=== PATIENT | male | born 1995 | race Caucasian/White ===

== ENCOUNTER 2022-05-10 12:12 | Emergency (ER) | payer OTHER ==
[2022-05-10] MEDS ORDERED: Morphine 4 MG/ML VIAL ONE ×2 (13:07→15:40)
[2022-05-10] MEDS ORDERED: Ondansetron PF 4 MG/2 ML Vial ONE (13:07)
[2022-05-10] MEDS ORDERED: Clindamycin/D5W 900 mg/50 ml Premix Bag ONE (13:07)
[2022-05-10 13:47] LABS: Anion Gap 21 mmol/L (10-20); BUN (Urea Nitrogen) 8 mg/dL (8.9-20.6); Calc. Creatinine Clearance 0 mL/min (70-130); Calcium 9.7 mg/dL (7.8-10.44); Carbon Dioxide 25 mmol/L (22-29); Chloride 96 mmol/L (98-107); Estimated GFR 126; Glucose 100 mg/dL (70-105); Potassium 3.9 mmol/L (3.5-5.1); Sodium 138 mmol/L (136-145)
[2022-05-10 13:53] LABS: Hemoglobin 18.1 g/dL (14.0-18.0); Mean Corpuscular HGB CONC 31.7 g/dL (32.0-36.0); Mean Corpuscular Volume 94.7 fL (78.0-98.0); Mean Platelet Volume 6.4 fL (7.4-10.4); Platelet Count 358 thou/uL (130-400); RBC Distribution Width 11.1 % (11.5-14.5); Red Blood Cell (RBC) Count 6.04 mill/uL (4.70-6.10); White Blood Cell (WBC) Count 23.7 thou/uL (4.8-10.8)
[2022-05-10 13:56] LABS: Band 5 % (5-11); MDiff Complete? YES
[2022-05-10 13:57] LABS: Lymphocytes 5 % (21-51); Monocytes 10 % (0-10); Neutrophil 80 % (42-75); Platelet Morphology Comment Appears Adequate
[2022-05-10 15:42] LABS: SARS-CoV-2 NAA Rapid Test Not Detected (NotDetected)
== END 2022-05-10 22:30 | disposition short-term general hospital (02) ==
LOC: NAV ERS 12:12
DX: K04.7 Periapical abscess without sinus (principal); D72.829 Elevated white blood cell count, unspecified
CPT/HCPCS: 70492; 80048; 83605; 85025; 87040; 96365; 96375; 96376; J2270; J2405; J3490; U0002